=== PATIENT | female | born 1955 | race Caucasian/White ===

== ENCOUNTER → 2019-04-27 09:43 | Outpatient (CLI) | payer BC, SELFPAY ==
--- NOTE | 2019-04-27 10:15 | EKG12_ITS ---
Test Reason : PREOP Blood Pressure : / mmHG Vent. Rate : 073 BPM Atrial Rate : 073 BPM P-R Int : 138 ms QRS Dur : 076 ms QT Int : 354 ms P-R-T Axes : 058 -06 034 degrees QTc Int : 389 ms Normal sinus rhythm Normal ECG Confirmed by BRENNAN MACIAS ([id number]), mapping editor BEATRIZ ADAMS ([id number]) on 05/01/2019 1:00:11 PM Referred By: RENETTA Bonner Confirmed By:BRENNAN MACIAS
[2019-04-27 11:29] LABS: Absolute Lymphocyte Count 2.02 X10^3/uL (0.83-4.51); Absolute Neutrophil Count 4.9 X10^3/uL (2.0-7.7); Basophil# 0.07 X10^3/uL; Basophil% 0.9 % (0-1); Eosinophil# 0.16 X10^3/uL; Hematocrit 42.5 % (37-47); Hemoglobin 13.8 g/dL (12.0-15.0); Lymphocyte # 2.02 X10^3/ul (4.0); Lymphocyte % 25.6 % (19-41); Mean Corp Hgb Conc 32.5 g/dL (32-36); Mean Corpuscular Hgb 27.2 pg (27.0-32.0); Mean Corpuscular Volume 83.8 fL (81-99); Mean Platelet Vol. 11.2 fl (6.2-12.0); Monocyte# 0.74 X10^3/uL; Monocyte% 9.4 % (0-10); NRBC Flagged by Analyzer 0 % (0-5); Neutrophil # 4.88 X10^3/uL (2.7-7.7); Neutrophil % 61.7 % (47-70); Platelet Count 308 K/mm3 (150-450); RBC Distribution Width CV 12.7 % (11.6-14.6); RBC Distribution Width SD 38.5 fl (35.1-43.9); Red Blood Count 5.07 M/mm3 (4.2-5.4); White Blood Count 7.9 K/mm3 (4.4-11.0)
[2019-04-27 12:12] LABS: Anion Gap 8 (5-15); BUN 17 mg/dL (7-18); BUN/Creat Ratio 24.3 RATIO (10-20); Calcium,Total 9.4 mg/dL (8.5-10.1); Chloride 107 mmol/L (98-107); Cholesterol 193 mg/dL (200); EST Glomerular Filtration Rate 90 mL/min (>60); Est Glom Filt Rate - Afr Amer 109 mL/min (>60); Glucose 97 mg/dL (74-106); High Density Lipoprotein 50 mg/dL; Potassium 4.2 mmol/L (3.5-5.1); Sodium Level 143 mmol/L (136-145); Triglycerides 211 mg/dL; Very Low Density Lipoprotein 42 mg/dL (5-40)
== END ==
PROVIDERS: Family Provider Family Medicine; PCP Family Medicine; Referring Provider Physician Assistant Surgical; Visit Provider Physician Assistant Surgical
DX: Z01.810 Encounter for preprocedural cardiovascular examination (principal); Z13.220 Encounter for screening for lipoid disorders
CPT/HCPCS: 80048; 80061; 85025; 93005

== ENCOUNTER 2020-05-30 06:57 | Day surgery (SDC) | payer BC, SELFPAY ==
[2020-05-30] VITALS (9 sets, daily range): BP systolic 102–160; BP diastolic 62–102; PULSE 81–97; RESP 16–18; TEMP 36.1–36.6; O2SAT 15–100; BMI 38.7
[2020-05-30] MEDS: Lactated Ringers 1,000 ML 100 ML IV ×2 (07:33→08:39)
--- NOTE | 2020-05-30 07:52 | PCM.HP.STD ---
Problem List (1) Screening for intestinal cancer Status: Acute History of Present Illness Date of Admission: 05/30/20 The patient is a 64 year old F who presents for screening colonoscopy today. Her previous 1 was 10 years prior. There is no personal history of colon polyps. No history of colon cancer. She otherwise is enjoying stable health. No chest pain or shortness of breath. No fever or chills. No change in bowel habits. Past Medical History Allergies clindamycin Allergy (Verified 05/30/20 07:15) Rash erythromycin base Adverse Reaction (Verified 05/30/20 07:15) Nausea/Vom/Diarrhea Home Medications: Ambulatory Orders Medication Instructions Recorded Glucos Sul 2Kcl/MSM/Chond/C/Mn 1 ea PO DAILY 05/27/20 [Glucosamine Chondroitin Cap] Multivitamin with Minerals 1 ea PO DAILY 05/27/20 [Multiple Vitamin] Turmeric Root Extract [Turmeric] 500 mg PO DAILY 05/27/20 Amoxicillin 2,000 mg PO X1 05/30/20 Smoking Status: Never smoker Tobacco Use: Non-smoker Review of Systems Constitutional: Denies: Fever, Night Sweats Cardiovascular: Denies: Chest Pain Respiratory: Denies: Cough, Shortness of Breath Gastrointestinal: Denies: Abdominal Pain, Nausea, Melena Endocrine: Denies: Change in Body Habitus VTE Information - Inpt Only VTE Present on Admission: No - Physical Exam Vitals/I&O's: Vital Signs Temp Pulse Resp BP Pulse Ox 97.0 F L 85 18 148/79 H 97 05/30/20 07:15 05/30/20 07:15 05/30/20 07:15 05/30/20 07:15 05/30/20 07:15 Oxygen Delivery Method Room Air Weight: 205 lb 0.478 oz Body Mass Index (BMI) 38.7 General: Alert, Oriented x3, Cooperative, No apparent distress HEENT: Atraumatic Oral: Moist Mucosa Lungs: Clear to auscultation, Normal air movement Cardiovascular: Regular rate, Regular Rhythm Abdomen: Bowel Sounds Present, Soft, Non Tender Extremities: No Calf Tenderness Neurological: - - Normal cognition Psych/Mental Status: Normal Affect Microbiology Past 72 Hours 05/28/20 09:10 Mucosa - Nasopharyngeal - Final Current Medications Lactated Ringer's () 1,000 mls @ 100 mls/hr IV .Q10H ROGER Last Admin: 05/30/20 07:33 Dose: 100 mls/hr Documented by: Assessment/Plan All Active Problems Screening for intestinal cancer (Acute) Patient presents for screening colonoscopy today. She presents via open access. She is aware of the technique, benefit, risk, alternatives. We will proceed at her discretion. John Oconnell M.D., F.A.C.S. Procedure Criteria Procedure Type: Elective COVID Risk Discussion: The surgeon/proceduralist and patient have discussed in detail the risk of exposure to and/or potential harm posed by the COVID-19 virus with having a surgery/procedure at this time versus the risk of delaying the surgery/procedure. It is not possible to know either the risk of delaying the surgery or procedure or chance of getting an infection with perfect accuracy, but a joint decision was made between the patient and the surgeon/proceduralist to proceed at this time with the scheduled surgery/procedure as indicated on the consent form.
--- NOTE | 2020-05-30 08:00 | COLBX_PTH ---
PATIENT: ROGE CARRINGTON LOC: EN U#:[id number] AGE/SX: 64/F ROOM: RE05/30/[address]: Dr. John Oconnell MD : 1955 BED: DIS: 05/30/2020 SPEC #: [id number] RECD: 05/30/20 11:45 STATUS: GABBY LIBAN #: [id number] MIKAYLA: 05/30/20 08:[address]: John Oconnell DEPT: SURGICAL PATHOLOGY RECD BY: Rodolfo Pollock ENTERED: 05/30/20 12:20 SP TYPE: COLON BX OTHR DR: Dr. Josef Oconnell III, MD Tissues: COLON BIOPSY Procedures: Surgery Specimen Level IV HEADER OPERATION: Colonoscopy - open access (MOD) PRE-OP DIAGNOSIS: Screening TISSUE SUBMITTED: Hepatic flexure polyp MICROSCOPIC DIAGNOSIS Hepatic flexure polyp, biopsy: Fragments of tubulovillous adenoma. SJ:sintia 06/02/20 MICROSCOPIC DESCRIPTION Slides are reviewed. GROSS DESCRIPTION Received in fixative is one container labeled with the patient's name and designated hepatic flexure polyp. The specimen consists of multiple irregular fragments of light zhao soft tissue that in aggregate measure 1 x 0.5 x 0.1 cm. The specimen is totally submitted in one cassette. / SJ:sintia 05/30/20 TC:3 CPT: 36631
--- NOTE | 2020-05-30 08:52 | OP.CCLET_ITS ---
05/30/2020 Josef Oconnell [address] [place] [address] Re : Colonoscopy procedure for Jeannette Simms Dear Dr. Oconnell This procedure was performed on Saturday, May 30, 2020. My impressions and recommendations are as follows: Impressions : - Hemorrhoids found on perianal exam. - One 8 mm polyp at the hepatic flexure, back side of a haustral fold, removed with a hot snare. Had to change to pediatric scope and retroflex inorder to gain access with torsion and shortening. Resected and retrieved. - The examination was otherwise normal. Recommendations : - Discharge patient to home. - Resume previous diet. - Continue present medications. - Repeat colonoscopy in 5 years for surveillance. - Telephone my office for pathology results in 1 week. My findings are described in the full procedure note, which is enclosed. If I can be of further assistance, please feel free to contact me at Doctor phone number(s): Work: . Sincerely, John Oconnell MD 05/30/2020 8:52:07 AM This report has been signed electronically.
--- NOTE | 2020-05-30 08:52 | OP.COLON_ITS ---
Patient Name: Jeannette Simms Procedure Date: 05/30/2020 7:56 AM Date of : 1955 Age: 64 Procedure: Colonoscopy Indications: Screening for colorectal malignant neoplasm Providers: John Oconnell MD Referring MD: Josef Oconnell Iii Medicines: Midazolam 5.5 mg IV, Meperidine 100 mg IV Patient Profile: Last Colonoscopy: 10 years ago. Complications: No immediate complications. Procedure: Pre-Anesthesia Assessment: - Prior to the procedure, a History and Physical was performed, and patient medications and allergies were reviewed. The patient's tolerance of previous anesthesia was also reviewed. The risks and benefits of the procedure and the sedation options and risks were discussed with the patient. All questions were answered, and informed consent was obtained. Prior Anticoagulants: The patient has taken no previous anticoagulant or antiplatelet agents. ASA Grade Assessment: II - A patient with mild systemic disease. After reviewing the risks and benefits, the patient was deemed in satisfactory condition to undergo the procedure. After I obtained informed consent, the scope was passed under direct vision. Throughout the procedure, the patient's blood pressure, pulse, and oxygen saturations were monitored continuously. The colonoscope was introduced through the anus and advanced to the cecum, identified by appendiceal orifice and ileocecal valve. The colonoscope was introduced through the and advanced to. The colonoscopy was extremely difficult due to poor endoscopic visualization. Successful completion of the procedure was aided by increasing the dose of sedation medication, withdrawing the scope and replacing with the pediatric endoscope, straightening and shortening the scope to obtain bowel loop reduction and using scope torsion. The patient tolerated the procedure well. The quality of the bowel preparation was good. The ileocecal valve and the appendiceal orifice were photographed. Moderate Sedation: Moderate (conscious) sedation was administered by the endoscopy nurse and supervised by the endoscopist. The following parameters were monitored: oxygen saturation, heart rate, blood pressure, and response to care. Total physician intraservice time was 20 minutes. Scope In: 8:06:36 AM Scope Withdrawal Time 0 hours 36 minutes 16 seconds Scope Out: 8:45:55 AM Total Procedure Duration Time 0 hours 39 minutes 19 seconds Findings: Hemorrhoids were found on perianal exam. A 8 mm polyp was found in the hepatic flexure. The polyp was sessile. The polyp was removed with a hot snare. Resection and retrieval were complete. The exam was otherwise without abnormality. Impression: - Hemorrhoids found on perianal exam. - One 8 mm polyp at the hepatic flexure, back side of a haustral fold, removed with a hot snare. Had to change to pediatric scope and retroflex inorder to gain access with torsion and shortening. Resected and retrieved. - The examination was otherwise normal. Recommendation: - Discharge patient to home. - Resume previous diet. - Continue present medications. - Repeat colonoscopy in 5 years for surveillance. - Telephone my office for pathology results in 1 week. Procedure Code(s): --- Professional --- 58481, Colonoscopy, flexible; with removal of tumor(s), polyp(s), or other lesion(s) by snare technique 40862, 59, Moderate sedation services provided by the same physician or other qualified health small animal caretaker performing the diagnostic or therapeutic service that the sedation supports, requiring the presence of an independent trained observer to assist in the monitoring of the patient's level of consciousness and physiological status; initial 15 minutes of intraservice time, patient age 5 years or older Diagnosis Code(s): --- Professional --- Z12.11, Encounter for screening for malignant neoplasm of colon K64.9, Unspecified hemorrhoids D12.3, Benign neoplasm of transverse colon (hepatic flexure or splenic flexure) CPT copyright 2017 [employer]. All rights reserved. The codes documented in this report are preliminary and upon mixer whipped topping review may be revised to meet current compliance requirements. John Oconnell MD 05/30/2020 8:52:07 AM This report has been signed electronically. Number of Addenda: 0 Note Initiated On: 05/30/2020 7:56 AM
== END 2020-05-30 09:43 | disposition home or self-care (01) ==
LOC: EN 06:58 → AC 06:59
PROVIDERS: PCP Family Medicine; Referring Provider Family Medicine; Visit Provider Surgery
PROC: 0DJD8ZZ Inspection of Lower Intestinal Tract, Via Natural or Artificial Opening Endoscopic (ICD-10-PCS; CPT 45378; principal; 2020-05-30 07:55)
DX: Z12.11 Encounter for screening for malignant neoplasm of colon (principal); D12.3 Benign neoplasm of transverse colon; Z20.828 Contact with and (suspected) exposure to other viral communicable diseases; K64.9 Unspecified hemorrhoids
CPT/HCPCS: 45385; 87426; 88305; 99152; 99153; C9803; J7120

== ENCOUNTER → 2021-05-07 11:56 | Outpatient (CLI) | payer BC, MEDICARE, SELFPAY ==
--- NOTE | 2021-05-07 12:05 | EKG12_ITS ---
Test Reason : PREOP Blood Pressure : / mmHG Vent. Rate : 068 BPM Atrial Rate : 068 BPM P-R Int : 152 ms QRS Dur : 078 ms QT Int : 376 ms P-R-T Axes : 044 -22 006 degrees QTc Int : 399 ms Normal sinus rhythm Normal ECG Confirmed by GABRIELLE ESPINOSA, UGO ([id number]), film and video editor JOHN PHAM ([id number]) on 05/12/2021 6:45:05 AM Referred By: Phillip Bonner Confirmed By:UGO ANTHONY MD
== END ==
PROVIDERS: PCP Family Medicine; Referring Provider Physician Assistant Surgical; Visit Provider Physician Assistant Surgical
DX: Z01.818 Encounter for other preprocedural examination (principal)
CPT/HCPCS: 93005

== ENCOUNTER 2022-11-15 14:00 | Outpatient (RCR) | payer MEDICARE, BC, SELFPAY ==
--- NOTE | 2022-09-20 18:25 | HP.PTEVAL_ITS ---
Patient's Visit Information ROGE CARRINGTON is a 66 year old F referred to Physical Therapy by Dr. Irina Lala MD with a diagnosis of OVER-ACTIVE BLADDER AND URGE INCONTINENCE. Date of Evaluation: 09/20/22 Physical Therapist: Bambi Rebolledo, PT, Cert MDT - Visit Plan Frequency: 1x/Week Duration: 8-10 WKS Plan: PF AND CORE STRENGTHENING. URGE AND STRESS INCONTINENCE EDUCATION AND INSTRUCTION IN APPROPRIATE BEHAVIORAL MODIFICATIONS. - Subjective Work/Leisure: RETIRED. Present symptoms: INCONTINENCE. SHE REPORTS SHE HAS BEEN HAVING URINARY LEAKING FOR SEVERAL YEARS. SHE REPORTS FREQUENT URINATION AND URGE INCONTINENCE. PATIENT DENIES PAIN. Present since: YEARS. GOT REALLY BAD IN 2019 WHILE WORKING. NO PROTECTION PRIOR TO 2019. WEARING ONE LIGHT PAD A DAY. Pain Scale: N/A. Is it getting better, worse or staying the same: W ORSENING. Worse: STANDING. FULL BLADDER. Better: GEMTESSA HAS HELPED SOME OF THE URGERNCY. Disturbed sleep: GETTING UP TO URINATE APPROX ONE TIME AT NIGHT. Previous history/Previous treatment: MEDICATION. Treatment this episode: GEMTESSA. PT CONSULT. Coughing/sneezing: NOT NORMALLY UNLESS BLADDER IS REALLY FULL - RARE. Gait: NORMAL. How long can you delay the need to urinate: 15 TO 30 MINUTES IN STANDING. 1-2 HOURS SITTING BUT SOON I STAND UP I HAVE TO GET TO THE BATHROOM. Prolapse (Falling out feeling): NO. Frequency of Urination: 8-9 TIMES A DAY. Ability to stop urine flow: YES. Ability to initiate urine stream: NO. Dyspareunia: NO. Bowel Dysfunction: NO. Accidents: NO. Unexplained weight loss: NO. Imaging/TESTING: ULTRASOUND TO CHECK BLADDER EMPTYING AND PATIENT REPORTS DR. LALA WAS HAPPY WITH THE RESULTS. PMH/Recent major surgery: H/O KIDNEY STONES. ARTHRITIS. H/O OF HAVING 4 LARGE BABIES. X 4. TUBAL LIGATION. GALLBLADDER REMOVAL. > 5 YEARS AGO - LYMPH NODE BIOPSY - DUE TO ENLARGED LYMPH NODES IN STERNUM - NEGATIVE. L KNEE MENISCUS REPAIR. REESE THR. OTHER: PRETTY ACTIVE - TAKING GILL AND LIFTING HERE AT FRESS 3 TIMES A WEEK. STATES SHE HAS NOT NOTICED LEAKING WITH EXERCISE. PATIENT DENIES ANY PHYSICIAN RESTRICTIONS. 2003 SX IN [facility] TO REMOVE TUBE AND OVERAY ON LEFT DUE TO ABSCESS AND TACKED UP BLADDER TO THE BEST OF PATIENTS KNOWLEDGE. NO CANCER. - Objective Sitting/Standing Posture: FAIR. NORMAL LUMBAR LORDOSIS AND NO RELEVANT LATERAL SHIFT. Other Observations: INDEP GAIT AND TRANSFERS. Sensory deficit: REESE LE LIGHT TOUCH SENSATION GROSSLY INTACT AND SYMMETRICAL EXCEPT RIGHT LATERAL HIP SINCE R THR. ROM deficit: REESE LE'S WFL. Motor deficit: REESE LE'S GROSSLY 5/5 WITH MMT'ING. Dural Signs: NEGATIVE REESE LE'S. Lumbar mvmt loss: flex - NIL. ext - MOD. R SG - MOD. L SG - MIN TO MOD. PATIENT DENIES PAIN WITH LUMBAR ROM TESTING ALL PLANES. Core strength: FAIR. Palpation: INTERNAL MANUAL VAGINAL PELVIC FLOOR TESTING REVEALS 4/5 PF STRENGTH WITH 10 SEC ENDURANCE. NO PELVIC FLOOR TENDERNESS OR TRIGGER POINTS AND PATIENT DENIES PAIN WITH TESTING. FUNCTIONAL SCREEN: Incontinence Impact Questionnaire Score: 4. Urogenital Distress Inventory Score: 6 - Goals Goal 1:: PATIENT WILL SUCCESSFULLY BE ABLE TO DELAY VOIDING UPON RISING FROM SITTING X 15 MINUTES. Goal Time Frame: 8-12 Weeks Goal 2:: NORMALIZE VOIDING PATTERNS. Goal Time Frame: 2-4 Weeks Goal 3:: PATIENT WILL HAVE INCREASED PELVIC FLOOR MUSCLE STRENGTH GRADE TO 5/5 Goal Time Frame: 8-12 Weeks Goal 4:: PATIENT WILL DEMONSTRATE 10 CONSISTENT AND CONSECUTIVE 10 SECOND PELVIC FLOOR MUSCLE CONTRACTIONS TO DEMONSTRATE IMPROVED PELVIC FLOOR ENDURANCE. Goal Time Frame: 8-12 Weeks Goal 5:: PATIENT WILL BE INDEP WITH A HEP/HOME INSTRUCTIONS FOR CONTINUED IMPROVEMENT ONCE FORMAL PHYSICAL THERAPY CONCLUDES. Goal Time Frame: 8-12 Weeks - Anticipated Interventions Patient/Client Instruction: Educate patient on: Condition, Plan of Care, Risk Factors For the Purpose of:: To improve self management Therapeutic Exercise to Include: Strength training, Neuromotor development For the Purpose of:: To improve muscle performance and motor function, To increase tolerance to activity/condition/position, To improve ability of physical actions for home/community/work/leisure Thank you for the opportunity to evaluate your patient. For Medicare and Medicare HMO plans, please review the plan of care and approve it. It will need to be FAXED BACK to us at [phone] for Medicare purposes. For Medicare only, by signing this I certify the plan of care. Please let me know if there are questions or concerns regarding this plan of care. Physician Signature: Date:
--- NOTE | 2022-11-15 16:48 | HP.PTDCSUM_ITS ---
It has been my pleasure to treat ROGE CARRINGTON referred by Dr. Irina Lala MD, with the diagnosis of OVER-ACTIVE BLADDER AND URGE INCONTINENCE for a total of 7 visit(s). Discharge Date: 11/15/22 Please see the following information for a summary of their discharge status. Subjective: PATIENT REPORTS SHE IS TICKLED TO WITH HER PROGRESS. SHE R EPORTS SHE CAN EVEN DUE GILL WITHOUT LEAKING AFTER NOW AND SHE NEVER THOUGHT THAT WOULD HAPPEN. PATIENT REPORTS FOLLOW UP WITH DR. LALA TODAY. STATES SHE IS GOING TO CONTINUE CURRENT MEDICINE AND FOLLOW UP IN 3 MONTHS. % Improvement: 100 Objective/Function: ALL GOALS MET. PATIENT IS APPROPRIATE FOR DISCHARGE. COMMUNICATED A GOOD UNDERSTANDING OF ALL INSTRUCTIONS AFTER GIVEN TODAY. WRITTEN HEP PROVIDED. Goal 1:: PATIENT WILL SUCCESSFULLY BE ABLE TO DELAY VOIDING UPON RISING FROM SITTING X 15 MINUTES. Goal Progress: Goal Met Goal 2:: NORMALIZE VOIDING PATTERNS. Goal Progress: Goal Met Goal 3:: PATIENT WILL HAVE INCREASED PELVIC FLOOR MUSCLE STRENGTH GRADE TO 5/5 Goal Progress: Goal Met Goal 4:: PATIENT WILL DEMONSTRATE 10 CONSISTENT AND CONSECUTIVE 10 SECOND PELVIC FLOOR MUSCLE CONTRACTIONS TO DEMONSTRATE IMPROVED PELVIC FLOOR ENDURANCE. Goal Progress: Goal Met Goal 5:: PATIENT WILL BE INDEP WITH A HEP/HOME INSTRUCTIONS FOR CONTINUED IMPROVEMENT ONCE FORMAL PHYSICAL THERAPY CONCLUDES. Goal Progress: Goal Met Plan: D/C TO INDEP HEP. PATIENT AGREEABLE. If there are questions or concerns regarding this patient's physical therapy, please feel free to call me at [phone]. Thank you for the referral of this patient. Sincerely, Bambi Rebolledo, PT, Cert MDT
== END 2022-11-15 19:00 | disposition home or self-care (01) ==
LOC: PT 14:00
PROVIDERS: PCP Family Medicine; Referring Provider Urology; Visit Provider Urology
DX: N32.81 Overactive bladder (principal); N39.41 Urge incontinence; N95.2 Postmenopausal atrophic vaginitis
CPT/HCPCS: 97162; 97530

== ENCOUNTER → 2022-11-24 | Outpatient (CLI) | payer MEDICARE, BC, SELFPAY ==
--- NOTE | 2022-11-24 12:23 | US_ITS ---
STUDY: RENAL ULTRASOUND - COMPLETE REASON FOR EXAM: Female, 67 years old. LT FLANK PAIN -- hx of KIDNEY STONES TECHNIQUE: Ultrasound evaluation of the kidneys was performed with real-time and static chairez-scale imaging. COMPARISON: None. FINDINGS: RIGHT KIDNEY: Normal location of the right kidney, which is normal in size. The right kidney measures 11.2 cm x 5.7 cm x 4.9 cm. There is a normal cortex of the right kidney. The renal cortex measures 1.2 cm. There is no right renal mass or cyst. There are no right renal calculi. There is no right hydronephrosis. DISTAL RIGHT URETER: There is non-visualization of the distal right ureter. There is no demonstrated right ureterovesical junction calculus. There is a visualized right ureteral jet. LEFT KIDNEY: Normal location of the left kidney, which is normal in size. The left kidney measures 11.7 cm x 5.5 cm x 5.2 cm. There is a normal cortex of the left kidney. The renal cortex measures 1.6 cm. There is no left renal mass or cyst. There are no left renal calculi. There is no left hydronephrosis. DISTAL LEFT URETER: There is non-visualization of the distal left ureter. There is no demonstrated left ureterovesical junction calculus. There is a visualized left ureteral jet. BLADDER: The distended urinary bladder has a volume of 210 ml. There is a normal wall thickness of the distended urinary bladder. There is no demonstrated mass within the urinary bladder. There are no demonstrated bladder calculi. US/Kidney and Bladder IMPRESSION: Normal ultrasound of the kidneys and urinary bladder. Electronically Signed: Kai Magana MD at 14:39 EDT ,
== END | disposition home or self-care (01) ==
LOC: US 12:20
PROVIDERS: PCP Family Medicine; Referring Provider Urology; Visit Provider Urology
DX: N20.0 Calculus of kidney (principal)
CPT/HCPCS: 76770

== ENCOUNTER → 2023-03-31 | Outpatient (CLI) | payer MEDICARE, BC, SELFPAY ==
[2023-03-31 16:00] LABS: Erythrocyte Sedimentation Rate 30 mm/hr (0-30)
[2023-03-31 16:04] LABS: CRP 6.89 mg/L (0.0-3.0); Rheumatoid Factor < 10.0 IU/mL (<15)
[2023-04-02 13:07] LABS: CCP IgG Antibodies 0 units (0-19)
[2023-04-04 16:09] LABS: ANTINUCLEAR ANTIBODIES DIRECT Negative (Negative)
== END | disposition home or self-care (01) ==
LOC: MTLAB 13:04
PROVIDERS: PCP Family Medicine; Visit Provider Family Medicine
DX: M25.50 Pain in unspecified joint (principal)
CPT/HCPCS: 36415; 85652; 86038; 86140; 86200; 86431

== ENCOUNTER 2023-05-31 09:22 | Day surgery (SDC) | payer MEDICARE, BC, SELFPAY ==
[2023-05-31] VITALS (7 sets, daily range): BP systolic 109–169; BP diastolic 56–85; PULSE 76–84; RESP 16–18; TEMP 36.6–37.1; O2SAT 97–100; BMI 37.9
[2023-05-31] MEDS: Lactated Ringers 1,000 ML 15 ML IV (09:49)
--- NOTE | 2023-05-31 10:08 | PCM.HP.STD ---
[facility] - General General Date of Service: 05/31/23 Chief Complaint: Surveillance for personal history of colon polyps HPI Narrative ROGE CARRINGTON, is a 67 F who presents today via open access. I assisted her May 30, 2020 with 2 polyp resections at the hepatic flexure. On that was technically very challenging and so I am having her return at a 3-year time interval. 1 of those polyps had to be removed using a pediatric scope and a retroflexed technique. Fortunately she has no concerns. No abdominal pain bright red blood per rectum or melena. [facility] Medical History (Updated 05/31/23 @ 10:[address] John Oconnell MD) Arthritis History of steroid therapy Hx of adenomatous polyp of colon Non-smoker Wears glasses Home Medications multivitamin with minerals 1 ea PO DAILY 05/27/20 [History Last Taken Unknown] turmeric root extract 500 mg capsule 500 mg PO DAILY 05/27/20 [History Last Taken Unknown] cholecalciferol (vitamin D3) 50 mcg (2,000 unit) capsule (D3-2000) 2,000 unit PO DAILY 05/26/23 [History Last Taken Unknown] glucosamine 500 mg-chondroitin 116.7 mg-herbal no.270 133.3 mg capsule (Cosamin ASU (with AKBA)) 1 cap PO DAILY 05/26/23 [History Last Taken Unknown] mirabegron 50 mg tablet,extended release 24 hr (Myrbetriq) 50 mg PO DAILY 05/26/23 [History Last Taken Unknown] Allergy/AdvReac Type Severity Reaction Status Date / Time alcohol Allergy Itching Verified 05/31/23 09:46 [From Mastisol Liquid Adhesive] clindamycin Allergy Rash Verified 05/31/23 09:46 gum mastic Allergy Itching Verified 05/31/23 09:46 [From Mastisol Liquid Adhesive] methyl salicylate Allergy Itching Verified 05/31/23 09:46 [From Mastisol Liquid Adhesive] storax Allergy Itching Verified 05/31/23 09:46 [From Mastisol Liquid Adhesive] erythromycin base AdvReac Nausea/Vom/ Verified 05/31/23 09:46 Diarrhea Surgical History (Updated 05/26/23 @ 16:05 by Apple Argueta) History of History of cholecystectomy History of hip replacement, total History of lateral meniscus repair of left knee History of salpingo-oophorectomy History of tubal ligation Hx of colonoscopy Social History Smoking Status: Never smoker ROS Constitutional Constitutional: Reports systems reviewed and no addt'l complaints, except as documented Cardiovascular Cardiovascular: Denies chest pain Respiratory/Chest Respiratory/Chest: Denies shortness of breath at rest Gastrointestinal Gastrointestinal: Denies abdominal pain, change in bowel habits, hematochezia or melena Vital Signs Vital Signs Vital Signs: 05/31/23 09:46 05/31/23 09:46 Temperature 98.1 F Temperature Source Temporal Pulse Rate 83 Respiratory Rate 18 Respiratory Pattern Normal Blood Pressure 169/78 H Blood Pressure Mean 108 Blood Pressure Source Monitor Blood Pressure Position Sitting Blood Pressure Location Left Arm Pulse Ox 97 Oxygen Delivery Method Room Air Weight Weight: 200 lb 9.93 oz Body Mass Index (BMI) 37.9 Physical Exam Const alert, oriented x3 and no apparent distress General Appearance: cooperative and comfortable Eyes General Eye: normal appearance of both eyes Neck General: normal visual inspection Chest inspection of chest normal Resp Effort and Inspection: able to speak in complete sentences and symmetric chest movement Auscultation: clear to auscultation bilaterally Cardio regular rate and regular rhythm GI soft to palpation, non-tender and non-distended Extremity no calf tenderness Neuro oriented x3 Psych thought process normal Assessment & Plan Assessment/Plan (1) Hx of adenomatous polyp of colon: PLAN: We will proceed with a colonoscopy with possible biopsy or polypectomy as indicated. She is aware of the technique, benefit, risk, alternatives. She has had an opportunity to ask and have questions answered. We will proceed as noted. John Oconnell M.D., F.A.C.S.
--- NOTE | 2023-05-31 10:30 | COLBX_PTH ---
PATIENT: ROGE CARRINGTON LOC: EN U#:[id number] AGE/SX: 67/F ROOM: RE05/31/[address]: Dr. John Oconnell MD : 1955 BED: DIS: 05/31/2023 SPEC #: [id number] RECD: 06/01/23 10:50 STATUS: GABBY LIBAN #: [id number] MIKAYLA: 05/31/23 10:[address]: John Oconnell DEPT: SURGICAL PATHOLOGY RECD BY: China Clifford ENTERED: 06/01/23 10:51 SP TYPE: COLON BX OTHR DR: Dr. Rudi Raza DO Tissues: A - COLON BIOPSY B - COLON BIOPSY C - COLON BIOPSY Procedures: Surgery Specimen Level IV HEADER OPERATION: Colonoscopy, open access, biopsy polypectomy PRE-OP DIAGNOSIS: History of adenomatous polyp of colon TISSUE SUBMITTED: A. Mid ascending polyp, B. Hepatic flexure polyp, C. Proximal transverse colon polyp MICROSCOPIC DIAGNOSIS A. Mid ascending polyp, biopsy: Inflammatory polyp. B. Hepatic flexure polyp, polypectomy: Fragments of tubular adenoma. C. Proximal transverse colon polyp, biopsy: A fragment of colonic mucosa, no pathologic diagnosis. SJ: 06/02/2023 MICROSCOPIC DESCRIPTION Slides are reviewed. GROSS DESCRIPTION A. Received is one container labeled with the patient name and designated mid ascending polyp. The specimen consists of multiple irregular fragments of light zhao soft tissue that in aggregate measure 1.2 x 0.4 x 0.1 cm. The specimen is totally submitted in one cassette. B. Received is one container labeled with the patient name and designated hepatic flexure polyp. The specimen consists of multiple irregular fragments of light zhao soft tissue that in aggregate measure 1.5 x 0.5 x 0.1 cm. The specimen is totally submitted in one cassette. C. Received is one container labeled with the patient name and designated proximal transverse colon polyp. The specimen consists of one irregular fragment of light zhao soft tissue that measures 0.4 x 0.4 x 0.1 cm. The specimen is totally submitted in one cassette. /CARLOS:jason 06/01/23 TC:1 CPT: 12825 x3
--- NOTE | 2023-05-31 11:39 | OP.COLON_ITS ---
Patient Name: Jeannette Simms Procedure Date: 05/31/2023 10:54 AM Date of : 1955 Age: 67 Procedure: Colonoscopy Indications: High risk colon cancer surveillance: Personal history of colonic polyps Providers: John Oconnell MD Medicines: See the Anesthesia note for documentation of the administered medications Patient Profile: Last Colonoscopy: May 2020. Complications: No immediate complications. Procedure: Pre-Anesthesia Assessment: - Prior to the procedure, a History and Physical was performed, and patient medications and allergies were reviewed. The patient's tolerance of previous anesthesia was also reviewed. The risks and benefits of the procedure and the sedation options and risks were discussed with the patient. All questions were answered, and informed consent was obtained. Prior Anticoagulants: The patient has taken no anticoagulant or antiplatelet agents. ASA Grade Assessment: II - A patient with mild systemic disease. After reviewing the risks and benefits, the patient was deemed in satisfactory condition to undergo the procedure. After I obtained informed consent, the scope was passed under direct vision. Throughout the procedure, the patient's blood pressure, pulse, and oxygen saturations were monitored continuously. The adult colonoscope was introduced through the anus and advanced to the cecum, identified by appendiceal orifice and ileocecal valve. The colonoscopy was technically difficult and complex due to multiple polyps. The patient tolerated the procedure well. The quality of the bowel preparation was good. The ileocecal valve and the appendiceal orifice were photographed. Scope In: 11:03:23 AM Scope Withdrawal Time 0 hours 24 minutes 29 seconds Scope Out: 11:32:50 AM Total Procedure Duration Time 0 hours 29 minutes 27 seconds Findings: The perianal and digital rectal examinations were normal. A 6 mm polyp was found in the hepatic flexure. The polyp was sessile. The polyp was removed with a cold snare. Resection and retrieval were complete. A 4 mm polyp was found in the mid ascending colon. The polyp was sessile. The polyp was removed with a cold biopsy forceps. Resection and retrieval were complete. A 5 mm polyp was found in the proximal transverse colon. The polyp was sessile. The polyp was removed with a cold biopsy forceps. Resection and retrieval were complete. Impression: - One 6 mm polyp at the hepatic flexure, removed with a cold snare. Resected and retrieved. Although I did not visualize this in an anterograde view I purposely retroflexed the colonoscope within the cecum ascending colon and was able to visualize this polyp. Significant effort was required and resecting it and removing. Specimen was obtained. The other 2 polyps 1 in the mid ascending colon and 1 in the proximal transverse colon were visualized in the forward gazing view. - One 4 mm polyp in the mid ascending colon, removed with a cold biopsy forceps. Resected and retrieved. - One 5 mm polyp in the proximal transverse colon, removed with a cold biopsy forceps. Resected and retrieved. Recommendation: - Await pathology results. - Discharge patient to home. - Resume previous diet. - Continue present medications. - Repeat colonoscopy in 3 years for surveillance based on pathology results. - Telephone my office for pathology results in 1 week. Procedure Code(s): --- Professional --- 76465, Colonoscopy, flexible; with removal of tumor(s), polyp(s), or other lesion(s) by snare technique [id number], 59, Colonoscopy, flexible; with biopsy, single or multiple Diagnosis Code(s): --- Professional --- Z86.010, Personal history of colonic polyps D12.2, Benign neoplasm of ascending colon D12.3, Benign neoplasm of transverse colon (hepatic flexure or splenic flexure) CPT copyright 2021 [employer] [place] [employer] [employer]. All rights reserved. The codes documented in this report are preliminary and upon etl analyst developer review may be revised to meet current compliance requirements. John Oconnell MD 05/31/2023 11:39:27 AM This report has been signed electronically. Number of Addenda: 0 Note Initiated On: 05/31/2023 10:54 AM
--- NOTE | 2023-05-31 11:40 | OP.CCLET_ITS ---
05/31/2023 Rudi Raza [address] [facility] [place] [address] Re : Colonoscopy procedure for Jeannette Guerrerocraft Dear Dr. Raza This procedure was performed on Wednesday, May 31, 2023. My impressions and recommendations are as follows: Impressions : - One 6 mm polyp at the hepatic flexure, removed with a cold snare. Resected and retrieved. Although I did not visualize this in an anterograde view I purposely retroflexed the colonoscope within the cecum ascending colon and was able to visualize this polyp. Significant effort was required and resecting it and removing. Specimen was obtained. The other 2 polyps 1 in the mid ascending colon and 1 in the proximal transverse colon were visualized in the forward gazing view. - One 4 mm polyp in the mid ascending colon, removed with a cold biopsy forceps. Resected and retrieved. - One 5 mm polyp in the proximal transverse colon, removed with a cold biopsy forceps. Resected and retrieved. Recommendations : - Await pathology results. - Discharge patient to home. - Resume previous diet. - Continue present medications. - Repeat colonoscopy in 3 years for surveillance based on pathology results. - Telephone my office for pathology results in 1 week. My findings are described in the full procedure note, which is enclosed. If I can be of further assistance, please feel free to contact me at Doctor phone number(s): Work: . Sincerely, John Oconnell MD 05/31/2023 11:39:27 AM This report has been signed electronically.
== END 2023-05-31 12:22 | disposition home or self-care (01) ==
LOC: EN 09:24 → AC 09:26
PROVIDERS: PCP Family Medicine; Referring Provider Family Medicine; Visit Provider Surgery
PROC: 0DJD8ZZ Inspection of Lower Intestinal Tract, Via Natural or Artificial Opening Endoscopic (ICD-10-PCS; CPT 45378; principal; 2023-05-31 10:25)
DX: D12.3 Benign neoplasm of transverse colon (principal); Z86.010 Personal history of colon polyps
CPT/HCPCS: 45385; 45380; 88305; J7120; J2405

== ENCOUNTER → 2025-02-05 | Outpatient (CLI) | payer MEDICARE, BC, SELFPAY ==
[2025-02-05 15:17] LABS: Hematocrit 44.1 % (37-47); Hemoglobin 14.8 g/dL (12.0-15.0); Immature Granulocytes Count 0.020 X10^3/uL (0.0-0.0); Mean Corp Hgb Conc 33.6 g/dL (32-36); Mean Corpuscular Volume 82.6 fL (81-99); Mean Platelet Vol. 11.4 fl (6.2-12.0); NRBC Flagged by Analyzer 0 % (0-5); Platelet Count 311 K/mm3 (150-450); RBC Distribution Width CV 12.6 % (11.6-14.6); RBC Distribution Width SD 37.6 fl (35.1-43.9); Red Blood Count 5.34 M/mm3 (4.2-5.4); White Blood Count 6.1 K/mm3 (4.4-11.0)
[2025-02-05 15:43] LABS: AST(SGOT) 25 U/L (<=31); Alanine Aminotransfer ALT/SGPT 29 U/L (<=34); Albumin, Serum 4.3 g/dL (3.4-4.8); Alkaline Phosphatase 87 U/L (35-104); Anion Gap 13 (5-15); BUN 13 mg/dL (4-19); BUN/Creat Ratio 18.0 RATIO (10-20); Calcium,Total 10.0 mg/dL (7.6-11.0); Carbon Dioxide 22.2 mmol/L (21.0-32.0); Chloride 103 mmol/L (98-108); Cholesterol 210 mg/dL (<=200); Globulin 2.9 g/dL (2.2-4.2); Glucose 159 mg/dL (70-99); Low Density Lipoprotein Calc. 106 mg/dL; Potassium 3.9 mmol/L (3.3-5.1); Triglycerides 271 mg/dL; Very Low Density Lipoprotein 54 mg/dL (5-40); cholesterol:hdl ratio screen 4.18
== END | disposition home or self-care (01) ==
LOC: BFHLAB 11:16
PROVIDERS: PCP Family Medicine; Visit Provider Family Medicine
DX: I10 Essential (primary) hypertension (principal); R73.01 Impaired fasting glucose
CPT/HCPCS: 36415; 80053; 80061; 83036; 85025